=== PATIENT | male | born 1995 | race American Indian/Alaskan Native ===

== ENCOUNTER 2021-08-25 14:27 | Emergency (ER) | payer OTHER ==
--- NOTE | 2021-08-25 17:09 | Emergency Department Report ---
- General Chief Complaint: Pain General Stated Complaint: LEFT FOOT INFECTION Time Seen by Provider: 08/25/21 17:05 Source: patient Mode of arrival: Ambulatory Limitations: No Limitations - History of Present Illness Initial Comments: 26-year-old black male with no past medical history presents to the emergency department for evaluation of left great toe pain and swelling. He states that 4 days ago he dropped something on his right left great toe, and then a blister came up to the area. He states that he popped blister 2 days ago, then he developed pain and swelling to the area. He states that last night his entire left great toe was red and swollen. He states that he was able to express moderate amounts of purulent drainage from area, but when he woke up this morning he had more swelling to the area. He denies fever. -: Gradual, days(s) (For) Location: other (Left great toe) Extremity Location: Left: Foot Place: home Patient Tetanus UTD: Yes Context: accidental Associated Symptoms: pain. denies: loss of feeling/numbness, suspect foreign body present, unable to move injured part, weakness followed by dizziness, nausea/vomiting, fever Treatments Prior to Arrival: other - Related Data Previous Rx's Medication Instructions Recorded Last Taken Type Naproxen [Naprosyn] 500 mg PO BID #14 tab 08/25/21 Unknown Rx Sulfamethoxazole/Trimethoprim 1 each PO BID #14 tab 08/25/21 Unknown Rx [Bactrim DS TAB] Allergies Allergy/AdvReac Type Severity Reaction Status Date / Time No Known Allergies Allergy Verified 08/25/21 15:09 ED Review of Systems ROS: Stated complaint: LEFT FOOT INFECTION Other details as noted in HPI Comment: All other systems reviewed and negative Constitutional: denies: chills, fever, malaise, weakness Respiratory: denies: shortness of breath Cardiovascular: denies: chest pain Gastrointestinal: denies: abdominal pain, nausea, vomiting Musculoskeletal: denies: back pain Neurological: denies: headache, weakness ED Past Medical Hx - Past Medical History Previous Medical History?: No - Surgical History Past Surgical History?: No - Social History Smoking Status: Never Smoker Substance Use Type: None - Medications Home Medications: Home Medications Medication Instructions Recorded Confirmed Last Taken Type Naproxen [Naprosyn] 500 mg PO BID #14 tab 08/25/21 Unknown Rx Sulfamethoxazole/Trimethoprim 1 each PO BID #14 tab 08/25/21 Unknown Rx [Bactrim DS TAB] ED Physical Exam - General Limitations: No Limitations General appearance: alert, in no apparent distress - Head Head exam: Present: atraumatic, normocephalic - Eye Eye exam: Present: normal appearance. Absent: conjunctival injection - Neck Neck exam: Present: normal inspection - Respiratory Respiratory exam: Absent: respiratory distress - Cardiovascular Cardiovascular Exam: Present: regular rate - GI/Abdominal GI/Abdominal exam: Absent: distended - Expanded Lower Extremity Exam Left Upper Leg exam: Present: normal inspection Knee exam: Present: normal inspection Lower Leg exam: Present: normal inspection Ankle exam: Present: normal inspection Foot/Toe exam: Present: tenderness, swelling (Left great toe), abrasion (Center of toe with purulent drainage noted to be coming out of it), erythema (Area surrounding open wound and most of the tip of toe). Absent: full ROM, ecchymosis Neuro vascular tendon exam: Present: no vascular compromise. Absent: pulse deficit, abnormal cap refill, motor deficit, extremity cold to touch, pallor Gait: Positive: observed and normal 1 - Open wound with erythema surrounding it and purulent drainage, of out of it. - Back Exam Back exam: Present: normal inspection - Neurological Exam Neurological exam: Present: alert, oriented X3 - Psychiatric Psychiatric exam: Present: normal affect, normal mood - Skin Skin exam: Present: warm, dry, normal color, abrasion (Left great toe) ED Course Vital Signs 08/25/21 08/25/21 15:01 17:15 Temperature 98.9 F 98.1 F Pulse Rate 75 68 Respiratory 14 12 Rate Blood Pressure 122/76 Blood Pressure 116/64 [Right] O2 Sat by Pulse 99 98 Oximetry ED Medical Decision Making - Medical Decision Making 26-year-old black male with no past medical history presents to the emergency department for evaluation of left great toe pain and swelling. He states that 4 days ago he dropped something on his right left great toe, and then a blister came up to the area. He states that he popped blister 2 days ago, then he developed pain and swelling to the area. He states that last night his entire left great toe was red and swollen. He states that he was able to express moderate amounts of purulent drainage from area, but when he woke up this morning he had more swelling to the area. He denies fever. Exam and symptoms consistent with cellulitis of left great toe secondary to infected open wound. She will be treated with 7-day course of Bactrim along with 7 days of naproxen. He is advised to take medications as prescribed, follow-up with his primary care provider if no improvement or worsening symptoms, and return to the emergency department immediately if he develops fever, malaise, or any concerning symptoms. He verbalizes understanding of and agreement with plan of care. Critical care attestation.: If time is entered above; I have spent that time in minutes in the direct care of this critically ill patient, excluding procedure time. ED Disposition Clinical Impression: Cellulitis of great toe, left Disposition: 01 HOME / SELF CARE / HOMELESS Is pt being admited?: No Does the pt Need Aspirin: No Condition: Stable Instructions: Cellulitis, Adult, [id number] Additional Instructions: Take medications as prescribed. Follow-up with primary care provider if no improvement or worsening symptoms. Return to the emergency department as needed. Prescriptions: Sulfamethoxazole/Trimethoprim [Bactrim DS TAB] 1 each PO BID #14 tab Naproxen [Naprosyn] 500 mg PO BID #14 tab Referrals: CODEY CASH MD [Staff Physician] - 3-5 Days Forms: Work/School Release Form(ED) Time of Disposition: 17:08
[2021-08-25 17:25] VITALS: BP 116/64
== END 2021-08-25 17:35 | disposition home or self-care (01) ==
LOC: ED 14:27
DX: L03.032 Cellulitis of left toe (principal)
CPT/HCPCS: 99282